=== PATIENT | female | born 1955 | race Two or more races ===

== ENCOUNTER 2024-11-14 15:14 | Inpatient (IN) | payer OTHER ==
[~2024-11-14] VITALS: Ht 157.5 cm; Wt 164.7 kg
[2024-11-14] MEDS ORDERED: PIPERACILLIN/TAZOBACTAM SODIUM 3.375 GM VIAL IV ONE ×2 (16:45→16:48)
[2024-11-14] MEDS ORDERED: LEVALBUTEROL HCL 1.25 MG/3 ML SOLUTION IH SCH ×2 (16:45→21:00)
[2024-11-14] MEDS ORDERED: FAMOtidine 10 MG/ML (4ML VIAL) IV ONE (16:45)
[2024-11-14] MEDS ORDERED: IPRATROPIUM BROMIDE 0.5 MG/2.5 ML AMPUL.NEB IH SCH ×2 (16:45→21:00)
[2024-11-14] MEDS ORDERED: METHYLPREDNISOLONE SOD SUCC 125 MG VIAL IV ONE (16:45)
[2024-11-14] MEDS ORDERED: MAGNESIUM SULFATE IN WATER 2 GM/50 ML PIGGYBAG IV ONE (16:45)
[2024-11-14] MEDS ORDERED: MAGNESIUM SULFATE 50% 1,000 MG/2 ML VIAL ONE (16:48)
[2024-11-14] MEDS ORDERED: METHYLPREDNISOLONE SOD SUCC 125 MG VIAL ONE (16:48)
[2024-11-14] MEDS ORDERED: FAMOTIDINE/PF 20 MG/2 ML VIAL ONE ×2 (16:48→20:34)
[2024-11-14] MEDS ORDERED: ACETAMINOPHEN 325 MG TABLET PO ONE (17:15)
[2024-11-14] MEDS ORDERED: ACETAMINOPHEN 500 MG GEL..CAP PO ONE (17:17)
[2024-11-14 17:27] LABS: HEMOGLOBIN 15.2 g/dL (12.0-15.00); MEAN CELL VOLUME 85.9 fL (80.00-100.00); MEAN CORPUSCULAR HEMOGLOBIN 29.6 pg (27.00-32.0); MEAN CORPUSCULAR HGB CONC 34.4 g/dl (32.0-36.0); PLATELET COUNT 206 K/uL (150-450); RED BLOOD COUNT 5.13 M/uL (4.00-6.00); RED CELL DISTRIBUTION WIDTH 13.7 % (11.5-14.5)
[2024-11-14] MEDS ORDERED: IPRATROPIUM BROMIDE 0.5 MG/2.5 ML AMPUL.NEB IH ONE (17:31)
[2024-11-14] MEDS ORDERED: LEVALBUTEROL HCL 1.25 MG/3 ML SOLUTION IH ONE (17:31)
[2024-11-14 17:42] LABS: ABG PH 7.438 (7.35-7.45); ABG PO2 65.4 mmHg (80-100); ABG pCO2 32.2 mmHg (35-45); BASE EXCESS -1.9 mmol/l; BICARBONATE 21.3 mmol/l (23-25); SaO2 93.2 %; Tco2 22.3 mmol/l
[2024-11-14 17:44] LABS: allen test SATISFACTORY; o2 21 %; puncture site RADIAL RIGHT
[2024-11-14 18:15] LABS: ALBUMIN 3.7 gm/dL (3.4-5.0); BILIRUBIN TOTAL 0.45 mg/dL (0.3-1.2); CALCIUM 9.1 mg/dL (8.5-10.1); CREATININE SERUM 0.78 mg/dL (0.55-1.02); GFR 73.01; GLOBULINA 3.6 G/DL (2.4-3.5); POTASSIUM 4.19 mEq/L (3.5-5.1); TOTAL PROTEIN 7.3 gm/dL (6.4-8.2)
[2024-11-14] MEDS ORDERED: CEFTRIAXONE SODIUM 2,000 MG in 0.9 % SODIUM CHLORIDE 100 ML IV SCH (18:54)
[2024-11-14] MEDS ORDERED: AZITHROMYCIN 500 MG in DEXTROSE 5 % IN WATER 250 ML IV SCH (18:55)
[2024-11-14] MEDS ORDERED: FAMOTIDINE/PF 20 MG in 0.9 % SODIUM CHLORIDE 8 ML IV PUSH SCH (18:56)
[2024-11-14] MEDS ORDERED: MONTELUKAST SODIUM 10 MG TABLET PO SCH (18:56)
[2024-11-14] MEDS ORDERED: CODEINE/PROMETHAZINE HCL 1 ML ML PO ONE (19:00)
[2024-11-14] MEDS ORDERED: 0.9 % SODIUM CHLORIDE 1,000 ML IV SCH (19:00)
[2024-11-14] MEDS ORDERED: DEXTROSE 50 % IN WATER 0.5 G/ML DISP.SYRIN IV PRN (19:00)
[2024-11-14] MEDS ORDERED: ACETAMINOPHEN 500 MG GEL..CAP PO PRN (19:00)
[2024-11-14] MEDS ORDERED: INSULIN LISPRO 1,000 UNIT/10 ML UNITS SUBCUTANEO PRN (19:00)
[2024-11-14] MEDS ORDERED: OSELTAMIVIR PHOSPHATE 75 MG CAPSULE PO SCH (19:01)
[2024-11-14] MEDS ORDERED: GUAIFEN/DEXTROMETHORPHAN/PE 10 ML BLIST.PACK PO ONE (20:33)
[2024-11-14] MEDS ORDERED: OSELTAMIVIR PHOSPHATE 75 MG CAPSULE PO ONE (20:34)
[2024-11-14] MEDS ORDERED: CEFTRIAXONE SODIUM 1,000 MG VIAL ONE (20:34)
[2024-11-14] MEDS ORDERED: AZITHROMYCIN 500 MG VIAL IV ONE (20:34)
[2024-11-14] MEDS ORDERED: CEFTRIAXONE SODIUM 2,000 MG VIAL ONE (20:38)
[2024-11-14 20:58] LABS: INR 1.03; PROTHROMBIN TIME 11.2 SECONDS (9.0-11.5)
[2024-11-14] MEDS ORDERED: GUAIFEN/DEXTROMETHORPHAN/PE 10 ML BLIST.PACK PO SCH (21:00)
[2024-11-14] MEDS ORDERED: METHYLPREDNISOLONE SOD SUCC 40 MG VIAL IV SCH (21:00)
[2024-11-14 21:51] VITALS: BP 104/63; O2SAT 96
[2024-11-15 02:08] LABS: URINE APPEARANCE Clear; URINE BILIRRUBIN Negative (NEGATIVE); URINE BLOOD Negative; URINE COLOR Yellow; URINE GLUCOSE Negative (NEGATIVE); URINE KETONE 15 (NEGATIVE); URINE LEUKOCYTE Negative; URINE NITRATE Negative; URINE PROTEIN Negative (NEGATIVE); URINE UROBILINOGEN 0.2 E.U./dl
[2024-11-15 02:51] LABS: URINE BACTERIA 0 uL (0.0-1933); URINE CAST 0.14 uL (0.0-1.40); URINE EPITHELIAL CELLS 1.1 uL (0.0-38.8); URINE RBC 0.5 uL (0.0-20.8); URINE WBC 0.7 uL (0.0-23.2)
[2024-11-15 03:08] VITALS: BP 122/64; O2SAT 96
[2024-11-15 08:15] VITALS: BP 112/68; O2SAT 94
[2024-11-15] MEDS ORDERED: ENOXAPARIN SODIUM 40 MG/0.4 ML SYRINGE SUBCUTANEO SCH (09:00)
[2024-11-15] MEDS ORDERED: LISINOPRIL 40 MG TABLET PO SCH (09:00)
[2024-11-15 16:47] VITALS: BP 111/65; O2SAT 97
[2024-11-16 00:42] VITALS: BP 122/68; O2SAT 95
[2024-11-16 08:00] VITALS: BP 146/80
[2024-11-16 08:35] LABS: HEMATOCRIT 44.8 % (36.0-45.00); HEMOGLOBIN 15.1 g/dL (12.0-15.00); MEAN CELL VOLUME 87.9 fL (80.00-100.00); MEAN CORPUSCULAR HEMOGLOBIN 29.6 pg (27.00-32.0); MEAN CORPUSCULAR HGB CONC 33.6 g/dl (32.0-36.0); PLATELET COUNT 243 K/uL (150-450)
[2024-11-16 09:27] LABS: CALCIUM 8.8 mg/dL (8.5-10.1); CREATININE SERUM 0.84 mg/dL (0.55-1.02); GFR 66.84; POTASSIUM 4.59 mEq/L (3.5-5.1)
[2024-11-16 15:52] LABS: URINE APPEARANCE Clear; URINE BACTERIA 4.8 uL (0.0-1933); URINE BILIRRUBIN Negative (NEGATIVE); URINE BLOOD Negative; URINE COLOR Yellow; URINE EPITHELIAL CELLS 3.7 uL (0.0-38.8); URINE KETONE Negative (NEGATIVE); URINE LEUKOCYTE Negative; URINE NITRATE Negative; URINE PROTEIN Negative (NEGATIVE); URINE UROBILINOGEN 0.2 E.U./dl; URINE WBC 8.8 uL (0.0-23.2)
[2024-11-16 16:29] VITALS: BP 136/71; O2SAT 97
[2024-11-16 16:31] LABS: URINE CAST 0.29 uL (0.0-1.40); URINE GLUCOSE >=1000 MG/DL (NEGATIVE); URINE RBC 1.9 uL (0.0-20.8)
[2024-11-17 00:45] VITALS: BP 160/84; O2SAT 98
[2024-11-17] MEDS ORDERED: METHYLPREDNISOLONE SOD SUCC 40 MG VIAL IV SCH (01:00)
[2024-11-17 09:53] VITALS: BP 150/83; O2SAT 100
[2024-11-17 18:58] VITALS: BP 136/76; O2SAT 97
[2024-11-17] MEDS ORDERED: CLONAZEPAM 0.5 MG TABLET PO SCH (21:00)
[2024-11-17] MEDS ORDERED: FAMOtidine 20 MG TABLET PO SCH (21:00)
[2024-11-18 00:57] VITALS: BP 147/77; O2SAT 99
[2024-11-18 08:00] VITALS: BP 166/77; O2SAT 97
[2024-11-18 08:16] LABS: HEMATOCRIT 41.6 % (36.0-45.00); HEMOGLOBIN 14.1 g/dL (12.0-15.00); MEAN CELL VOLUME 87.2 fL (80.00-100.00); MEAN CORPUSCULAR HEMOGLOBIN 29.6 pg (27.00-32.0); MEAN CORPUSCULAR HGB CONC 33.9 g/dl (32.0-36.0); PLATELET COUNT 247 K/uL (150-450); RED BLOOD COUNT 4.77 M/uL (4.00-6.00); RED CELL DISTRIBUTION WIDTH 13.8 % (11.5-14.5)
[2024-11-18 13:00] VITALS: BP 167/89; O2SAT 95
[2024-11-18 16:00] VITALS: BP 145/72; O2SAT 99
[2024-11-18 23:48] VITALS: BP 138/84; O2SAT 97
[2024-11-19 07:25] LABS: HEMATOCRIT 42.9 % (36.0-45.00); HEMOGLOBIN 14.7 g/dL (12.0-15.00); MEAN CELL VOLUME 87.1 fL (80.00-100.00); MEAN CORPUSCULAR HEMOGLOBIN 29.9 pg (27.00-32.0); MEAN CORPUSCULAR HGB CONC 34.4 g/dl (32.0-36.0); PLATELET COUNT 250 K/uL (150-450); RED BLOOD COUNT 4.92 M/uL (4.00-6.00); RED CELL DISTRIBUTION WIDTH 13.8 % (11.5-14.5)
[2024-11-19 07:59] LABS: CALCIUM 9.5 mg/dL (8.5-10.1); CREATININE SERUM 0.84 mg/dL (0.55-1.02); GFR 66.84; POTASSIUM 4.71 mEq/L (3.5-5.1)
[2024-11-19 08:16] VITALS: BP 160/78; O2SAT 97
[2024-11-19 12:00] VITALS: BP 159/79; O2SAT 95
[2024-11-19 16:00] VITALS: BP 161/81; O2SAT 95
[2024-11-20 00:21] VITALS: BP 132/78; O2SAT 99
[2024-11-20 08:00] VITALS: BP 166/73; O2SAT 99
[2024-11-20] MEDS ORDERED: CLOTRIMAZOLE 10 MG TROCHE MM SCH (13:00)
[2024-11-20 16:00] VITALS: BP 176/92; O2SAT 97
[2024-11-21 00:32] VITALS: BP 136/74; O2SAT 96
[2024-11-21 08:00] VITALS: BP 180/90; O2SAT 97
[2024-11-21] MEDS ORDERED: AMLODIPINE BESYLATE 5 MG TABLET PO SCH (10:41)
[2024-11-21 16:19] VITALS: BP 144/76; O2SAT 95
[2024-11-21] MEDS ORDERED: INSULIN GLARGINE,HUM.REC.ANLOG 1,000 UNITS/10 ML UNITS SUBCUTANEO STA (18:02)
[2024-11-21] MEDS ORDERED: INSULIN GLARGINE,HUM.REC.ANLOG 1,000 UNITS/10 ML UNITS SUBCUTANEO SCH (21:00)
[2024-11-21] MEDS ORDERED: INSULIN LISPRO 1,000 UNIT/10 ML UNITS SUBCUTANEO ONE (22:30)
[2024-11-22 00:17] VITALS: BP 155/78; O2SAT 97
[2024-11-22 08:59] VITALS: BP 150/71; O2SAT 95
[2024-11-22] MEDS ORDERED: INSULIN LISPRO 1,000 UNIT/10 ML UNITS SUBCUTANEO SCH (13:00)
[2024-11-22 16:00] VITALS: BP 151/73; O2SAT 95
[2024-11-22] MEDS ORDERED: BUDESONIDE 0.5 MG/2 ML AMPUL.NEB IH SCH (17:00)
[2024-11-23 00:37] VITALS: BP 156/79; O2SAT 95
[2024-11-23 08:00] VITALS: BP 161/86; O2SAT 98
[2024-11-23] MEDS ORDERED: METHYLPREDNISOLONE SOD SUCC 40 MG VIAL IV SCH (09:00)
[2024-11-23 16:00] VITALS: BP 152/83; O2SAT 97
[2024-11-24 01:00] VITALS: BP 140/84; O2SAT 99
[2024-11-24 08:00] VITALS: BP 124/73; O2SAT 95
[2024-11-24 16:00] VITALS: BP 159/78; O2SAT 96
[2024-11-25 00:26] VITALS: BP 138/83; O2SAT 97
[2024-11-25 08:00] VITALS: BP 156/82; O2SAT 95
== END 2024-11-25 11:12 | disposition home or self-care (01) | DRG 194 ==
LOC: ER 15:16 → SEC-K 19:17 → SURH 19:17
PROVIDERS: General Practice; Student in an Organized Health Care Education/Training Program; ADMIT Student in an Organized Health Care Education/Training Program; ATTEND Student in an Organized Health Care Education/Training Program
PROC: BW24ZZZ Computerized Tomography (CT Scan) of Chest and Abdomen (ICD-10-PCS; principal; 2024-11-14)
PROC: 8E0ZXY6 Isolation (ICD-10-PCS; 2024-11-16)
DX: J10.08 Influenza due to other identified influenza virus with other specified pneumonia (principal); N39.0 Urinary tract infection, site not specified; J44.1 Chronic obstructive pulmonary disease with (acute) exacerbation; J45.41 Moderate persistent asthma with (acute) exacerbation; I10 Essential (primary) hypertension; E11.9 Type 2 diabetes mellitus without complications; Z79.4 Long term (current) use of insulin